=== PATIENT | female | born 1985 | race Caucasian/White ===

== ENCOUNTER 2021-01-16 14:31 | Emergency (ER) | payer OTHER, SELFPAY ==
[2021-01-16 14:32] VITALS: BP 110/70; PULSE 58; RESP 18; TEMP 35.9; O2SAT 98; BMI 24.2
--- NOTE | 2021-01-16 14:53 | RAD_ITS ---
History: Trauma Cervical spine 3 views: Findings: No fracture or subluxation. Disc spaces and facet joints appear normal. Precervical soft tissues are normal. IMPRESSION: Intact cervical spine. at 1526 Reported and signed by: Deo Dang MD Electronically Signed: Deo Dang MD at 15:24 EDT Tel , Service support , RAD/Cerv Spine 2 or 3 Views
--- NOTE | 2021-01-16 14:54 | RAD_ITS ---
History: Trauma Right shoulder 2 views: Findings: There appears to be a small avulsion fracture arising from the greater tubercle of the humerus. No subluxation deformity or joint space abnormality. IMPRESSION: Small acute avulsion fracture of the greater tubercle of the humerus. at 1526 Reported and signed by: Deo Dang MD Electronically Signed: Deo Dnag MD at 15:25 EDT Tel , Service support , RAD/Shoulder min 2 Views
[2021-01-16] MEDS: oxyCODONE 5 MG Tablet PO (15:01)
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
[2021-01-16] MEDS: Diphth,Pertuss(Acell),Tet Vac 0.5 ML Vial IM (16:44)
[2021-01-16 16:48] VITALS: BP 103/73; PULSE 60; RESP 16; O2SAT 100
[2021-01-16] MEDS: Lidocaine 1% (20 ml mdv) 20 ML Vial INFILT (17:32)
== END 2021-01-16 17:33 | disposition home or self-care (01) ==
PROVIDERS: Emergency Provider Emergency Medicine; PCP Family Medicine
DX: S61.412A Laceration without foreign body of left hand, initial encounter (principal); V80.929A Occupant of animal-drawn vehicle injured in unspecified transport accident, initial encounter
CPT/HCPCS: 12001; 72040; 73030; 90715; 96372; 99285